=== PATIENT | female | born 1955 | race Caucasian/White ===

== ENCOUNTER 2021-02-12 13:34 | Emergency (ER) | payer MEDICARE, OTHER ==
[~2021-02-12] VITALS: Ht 149.9 cm; Wt 77.0 kg
[2021-02-12 13:34] VITALS: BP 122/86
[2021-02-12] MEDS ORDERED: DIPH,PERTUSS(ACELL),TET VAC/PF 0.5 ML SYRINGE. VAX IM ONE (15:00)
[2021-02-12] MEDS ORDERED: DOXY100T PO (15:21)
--- NOTE | 2021-02-12 15:21 | PHYS DOC ---
Past History Past Medical History: Arthritis, Asthma, Depression, GERD, Hypertension, Kidney Stones, Seizure, Other Additional Past Medical Histor: back pain Past Surgical History: Other Alcohol Use: None Adult General Chief Complaint Chief Complaint: LACERATION/AVULSION HPI HPI Patient is a female who presents to the ED today with a skin tear to the left forearm that occurred a couple minutes prior to coming to the ED while they were moving a cabinet with her . Review of Systems Review of Systems Constitutional: Denies fever or chills [] Musculoskeletal: Denies back pain or joint pain [] Integument: Left forearm skin tear Neurologic: Denies headache, focal weakness or sensory changes [] All other systems were reviewed and found to be within normal limits, except as documented in this note. Current Medications Current Medications Current Medications Medications (Trade) Dose Ordered Sig/Tae Start Time Stop Time Status Last Admin Dose Admin Diphtheria/ Pertussis/Tetanus Vacc (ADACEL TDap SYRINGE) 0.5 ml ONCE ONCE 02/12/21 15:00 02/12/21 15:01 UNV Allergies Allergies Allergies Coded Allergies Type Severity Reaction Last Updated Verified iodine Allergy Severe 02/12/21 Yes Penicillins Allergy Unknown 02/12/21 Yes Sulfa (Sulfonamide Antibiotics) Allergy Unknown 02/12/21 Yes gabapentin Allergy Unknown 02/12/21 Yes ketorolac Allergy Unknown 02/12/21 Yes meperidine Allergy Unknown 02/12/21 Yes promethazine Allergy Unknown 02/12/21 Yes Physical Exam Physical Exam Constitutional: Well developed, well nourished, no acute distress, non-toxic appearance. [] Skin: Left dorsal forearm distal and with a superficial skin tear approximately 4 cm long. Neurovascular exam is intact to the left forearm and left hand. +2 left radial pulse, cap refill less than 2 seconds in left Back: No tenderness, no CVA tenderness. [] Extremities: No tenderness, no cyanosis, no clubbing, ROM intact, no edema. [] Neurologic: Alert and oriented X 3, normal motor function, normal sensory function, no focal deficits noted. [] Psychologic: Affect normal, judgement normal, mood normal. [] Current Patient Data Vital Signs Vital Signs Date Time Temp Pulse Resp B/P (MAP) Pulse Ox O2 Delivery O2 Flow Rate FiO2 02/12/21 13:34 97.7 68 18 122/86 (98) 97 EKG EKG [] Radiology/Procedures Radiology/Procedures [] Heart Score C/O Chest Pain: N/A Risk Factors: Risk Factors: DM, Current or recent (<one month) smoker, HTN, HLP, family history of CAD, obesity. Risk Scores: Risk Factors: DM, Current or recent (<one month) smoker, HTN, HLP, family history of CAD, obesity. Course & Med Decision Making Course & Med Decision Making Pertinent Labs and Imaging studies reviewed. (See chart for details) This is a 65-year-old female patient presenting to the ED today with a skin tear to the left forearm. Tetanus updated. The skin tear was covered with Steri- Strips. Wound care instructions and return precautions provided. She requested antibiotics, she is allergic to several other antibiotics including Bactrim, penicillin. She was discharged on doxycycline Dragon Disclaimer Dragon Disclaimer This electronic medical record was generated, in whole or in part, using a voice recognition dictation system. Departure Departure: Impression: Primary Impression: Skin tear of left upper extremity Disposition: HOME / SELF CARE / HOMELESS Condition: STABLE Referrals: PCP,UNKNOWN (PCP) follow up with your doctor in 1-2 weeks Patient Instructions: Skin Tear Care Additional Instructions: You have skin tear to the left forearm. Keep the area clean and dry. Take the prescribed antibiotics until completed. Apply Neosporin to the area twice a day. Come back to the ED at any point wound condition worsens Scripts Doxycycline Hyclate (DOXYCYCLINE HYCLATE) 100 Mg Tablet 1 TAB PO BID, #14 TAB Prov: JESSICA LEONARDO APRN 02/12/21 JESSICA LEONARDO APRN February 12, 2021 15:21
== END 2021-02-12 15:40 | disposition home or self-care (01) ==
LOC: ER 13:34
DX: S41.112A Laceration without foreign body of left upper arm, initial encounter (principal); M19.90 Unspecified osteoarthritis, unspecified site; J45.909 Unspecified asthma, uncomplicated; F32.9 Major depressive disorder, single episode, unspecified; K21.9 Gastro-esophageal reflux disease without esophagitis; I10 Essential (primary) hypertension; Z87.442 Personal history of urinary calculi; Z88.0 Allergy status to penicillin; Z88.8 Allergy status to other drugs, medicaments and biological substances; Z88.2 Allergy status to sulfonamides; W22.8XXA Striking against or struck by other objects, initial encounter; Y93.89 Activity, other specified; Y92.89 Other specified places as the place of occurrence of the external cause; Y99.8 Other external cause status
CPT/HCPCS: 90471; 90715; 99283

== ENCOUNTER 2021-03-21 06:26 | Observation (INO) | payer MEDICARE, OTHER ==
[~2021-03-21] VITALS: Ht 149.9 cm; Wt 85.4 kg
[~2021-03-21 06:26] MED LIST: DOXY100T PO
[2021-03-21] MEDS ORDERED: NEOMY/BACITR/POLYMYXIN OINT PACKET. TP ONE (07:00)
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
--- NOTE | 2021-03-21 07:50 | RAD ---
Study: XR RT WRIST 3VIEWS Indication: Right wrist laceration/pain. Comparison: None. Findings: No acute fracture. Alignment is within normal limits. No advanced arthrosis. Mild soft tissue prominence at the dorsum of the distal forearm. No retained radiopaque foreign body. Impression: 1. No acute osseous abnormality. 2. Soft tissue prominence at the dorsum of the distal forearm could be related to a site of soft tiss ue injury. No retained radiopaque foreign body. Electronically signed by: KELSY HAMILTON MD (03/21/2021 7:48 AM) [facility]
--- NOTE | 2021-03-21 08:23 | RAD ---
INDICATION: Reason: soa / Spl. Instructions: / History: COMPARISON: None. FINDINGS: Single view of chest obtained. Elevation of the right hemidiaphragm. Suspected 13 mm nodular opacity in the right midlung. Air-fluid level in retrocardiac region could be from hiatal hernia. Compression fracture near the junction since. Degenerative changes the spine. En larged cardiomediastinal silhouette. IMPRESSION: * Nodular opacity in the right mid lung. Possible causes would include round atelectasis or pneumoni a as well as a lung nodule. Follow-up will be needed to ensure that this appropriately decreases. * Elevation of the right hemidiaphragm. * Suspected hiatal hernia. * Enlarged cardiomediastinal silhouette. * Compression fracture near thoracic lumbar junction. Electronically signed by: Servando Romero MD (03/21/2021 8:20 AM) [id number]
--- NOTE | 2021-03-21 08:41 | RAD ---
Examination: CT chest without contrast HISTORY: History of exertional dyspnea COMPARISON: None available Technique: Axial CT images of the chest were performed without contrast. Coronal and sagittal reforma ts are performed Exposure: One or more of the following individualized dose reduction techniques were utilized for thi s examination: 1. Automated exposure control 2. Adjustment of the mA and/or kV according to patient size 3. Use of iterative reconstruction technique FINDINGS: The visualized thyroid gland grossly appears unremarkable. The central airways are patent. Mild cardi omegaly. Trace pericardial effusion. Moderate hiatal hernia. Examination limited lack of IV contrast. No radiologically significant mediastinal lymphadenopathy. Linear airspace opacity identified in the right middle lobe lung likely atelectasis or infiltrate. The visualized noncontrasted liver demonstr ates subcentimeter cystic structure in the left lobe of the liver. The spleen, left adrenal grossly a ppears unremarkable. There is a adrenal nodule identified measuring 2 cm and measuring -1.6 Hounsfiel d units. Cholecystectomy clips identified. Mild degenerative changes thoracic spine. Mild superior endplate compression changes of T12 vertebral body. IMPRESSION: 1.Linear airspace opacity identified in the right middle lobe lung likely atelectasis or infiltrate. 2. Moderate size hiatal hernia. 3. 2 cm density identified in the right adrenal gland measuring -1.6 HU likely a lipid rich adrenal a denoma. Electronically signed by: Juan Fair MD (03/21/2021 8:39 AM) [id number]
[2021-03-21 08:55] LABS: BASO % 0 % (0-3); EOS # 0.1 x10^3/uL (0.0-0.7); EOS % 3 % (0-3); HEMATOCRIT 39.1 % (36.0-47.0); HEMOGLOBIN 13.1 g/dL (12.0-15.5); LYMPH # 1.2 x10^3/uL (1.0-4.8); LYMPH % 30 % (24-48); MEAN CORPUSCULAR HEMOGLOBIN 32 pg (25-35); MEAN CORPUSCULAR HGB CONC 34 g/dL (31-37); MEAN CORPUSCULAR VOLUME 96 fL (79-100); MONO # 0.3 x10^3/uL (0.0-1.1); MONO % 7 % (0-9); NEUT # 2.3 x10^3uL (1.8-7.7); NEUT % 60 % (31-73); PLATELET COUNT 143 x10^3/uL (140-400); RED BLOOD COUNT 4.08 x10^6/uL (3.50-5.40); RED CELL DISTRIBUTION WIDTH 13.8 % (11.5-14.5); WHITE BLOOD COUNT 3.9 x10^3/uL (4.0-11.0)
[2021-03-21 09:04] LABS: CALCIUM 9.1 mg/dL (8.5-10.1); CREATININE 0.8 mg/dL (0.6-1.0); GFR 71.5; POTASSIUM 4.1 mmol/L (3.5-5.1)
[2021-03-21 09:10] LABS: ALBUMIN 3.6 g/dL (3.4-5.0); ALBUMIN/GLOBULIN RATIO 1.3 (1.0-1.7); MAGNESIUM 2.1 mg/dL (1.8-2.4); TOTAL BILIRUBIN 0.3 mg/dL (0.2-1.0); TOTAL PROTEIN 6.4 g/dL (6.4-8.2)
[2021-03-21] MEDS ORDERED: LOSA100T14 PO (09:36)
[2021-03-21] MEDS ORDERED: BUSP15TA PO (09:36)
[2021-03-21] MEDS ORDERED: LEVO50CA3 PO (09:36)
[2021-03-21] MEDS ORDERED: ZONI100C33 PO (09:36)
[2021-03-21] MEDS ORDERED: CYCL1DRO EACHEYE (09:36)
[2021-03-21] MEDS ORDERED: ROPI0.25 PO (09:36)
[2021-03-21] MEDS ORDERED: DOCU-109 PO ×2 (09:36)
[2021-03-21] MEDS ORDERED: CARB200C7 PO (09:36)
[2021-03-21] MEDS ORDERED: ALBU2.5V8 IH (09:36)
[2021-03-21] MEDS ORDERED: FAMO-63 PO (09:36)
[2021-03-21] MEDS ORDERED: PRAV40TA2 PO ×2 (09:36→14:17)
[2021-03-21] MEDS ORDERED: PANT40TA3 PO (09:36)
[2021-03-21] MEDS ORDERED: HCTZ PO (09:36)
[2021-03-21] MEDS ORDERED: rOPINIRole 2 MG TABLET. PO ONE (09:45)
[2021-03-21 10:36] LABS: BILIRUBIN,URINE NEG (NEG); CLARITY,URINE CLEAR; COLOR,URINE YELLOW; GLUCOSE,URINE NEG (NEG); NITRITE,URINE NEG (NEG)
[2021-03-21 10:45] LABS: AMORPHOUS SEDIMENT,UR PRESENT /HPF; BACTERIA,URINE 0 /HPF (0-FEW); RBC,URINE 0 /HPF (0-2); SQUAMOUS EPITHELIAL CELL,UR FEW /LPF; WBC,URINE OCC /HPF (0-4)
[2021-03-21] MEDS ORDERED: AZITHROMYCIN 500 MG VIAL. IV ONE (10:58)
[2021-03-21] MEDS ORDERED: cefTRIAXone SODIUM 1 GM VIAL ONE (10:59)
[2021-03-21] MEDS ORDERED: AZITHROMYCIN 500 MG in IV NORMAL SALINE 250ML 250 ML IV ONE (11:00)
[2021-03-21] MEDS ORDERED: IV NORMAL SALINE 50ML 50 ML ONE (11:01)
[2021-03-21] MEDS ORDERED: ONDANSETRON ODT 4 MG TAB.RAPDIS PO ONE (11:30)
--- NOTE | 2021-03-21 12:29 | RAD ---
EXAM: Lung perfusion scintigraphy. HISTORY: Shortness of breath, right hemidiaphragmatic paralysis. COMPARISON: CT 03/21/2021, radiograph 03/21/2021. FINDINGS: 5.5 mCi Tc-99m MAA were administered intravenously. Scintigraphic images of the lungs were obtained in multiple projections. The right hemidiaphragm is elevated. Otherwise, there is a physiologic distribution of radiotracer. T here are no segmental defects. IMPRESSION: 1. No evidence of pulmonary embolism. Electronically signed by: Weston Siu MD (03/21/2021 12:26 PM) [id number]
--- NOTE | 2021-03-21 12:32 | EKG ---
[address] [address] Test Date: 2021-03-21 Test Time: 08:48:25 Pat Name: CONNER RADER Department: Room: Gender: F Otc Clerk: JUDY : 1955 Requested By: TRE MELISAS Order Number: [id number] Reading MD: Measurements Intervals [place] Rate: 53 P: 18 NH: 170 QRS: -18 QRSD: 92 T: 5 QT: 440 QTc: 415 Interpretive Statements SINUS RHYTHM LEFTWARD AXIS INCOMPLETE RIGHT BUNDLE BRANCH BLOCK QRS(T) CONTOUR ABNORMALITY CONSIDER ANTEROSEPTAL MYOCARDIAL DAMAGE POSSIBLY ABNORMAL ECG RI6.02 No previous ECG available for comparison
[2021-03-21 12:41] VITALS: BP 145/86
[2021-03-21] MEDS ORDERED: TRAZ-125 PO (14:17)
[2021-03-21 15:00] VITALS: BP 133/76
[2021-03-21] MEDS ORDERED: ALBUTEROL SULFATE 8GM INHALER. INH PRN (17:30)
--- NOTE | 2021-03-21 17:32 | HP ---
ADMIT DATE: 03/21/2021 The patient is a 65-year-old female patient who came to the Emergency Room with multiple complaints. Initially, she does complain of right wrist abrasion that occurred at around 11:00 p.m. last night while cleaning out her paper shredder while cutting it on the plastic basket, she applied Steri-Strips and stated the wound is still leaking. She is very anxious in the Emergency Department with rapid speech and upon history she reports that she apparently was discharged from [facility] on 03/16 after admission for weakness and right leg pain. She apparently was extensively investigated and was discharged home with a walker. She reported exertional shortness of breath that has been worsening in the past month and feels that as if she cannot catch her breath. She does have intermittent chest tightness episodes that are increasing in severity since she failed a stress test 10 years ago. She basically was extensively investigated in the Emergency Room, had an EKG, which showed she was in a sinus rhythm with the heart rate of 53 beats per minute, left axis deviation, normal intervals, T-wave inversion in lead III, V1, V2, V3 and no ST segment elevation or depression, did have incomplete right bundle branch block. Her x-ray of her wrist joint showed no acute fracture and alignment is within normal limits, no advanced arthrosis, mild soft tissue prominence at the distal forearm. No retained radiopaque foreign body. She did have also a chest x-ray, PA and lateral view, which showed that the patient has nodular opacity in the right mid lung, possible causes would include round atelectasis or pneumonia as well as lung nodules. Followup will be needed to ensure this is appropriately decreases, she has elevation of the right hemidiaphragm, suspected hiatal hernia and compression fractures in the thoracolumbar junction. She has had lab work done showed a CBC that was unremarkable. Her chemistry was also unremarkable. Her first set of cardiac enzymes showed troponin to be less than 0.017. The patient was admitted to do two more sets of cardiac enzyme and to consult the Cardiology Team. MAX DR: Jesus TID: [id number]
[2021-03-21 19:48] VITALS: BP 117/73
[2021-03-21] MEDS: carBAMazepine 200 MG TABLET PO SCH (20:33)
[2021-03-21] MEDS: cycloSPORINE 0.05% OPTH 1 DROP DROPERETTE OU SCH (20:33)
[2021-03-21] MEDS: busPIRone 15 MG TABLET. PO SCH (20:34)
[2021-03-21] MEDS: PANTOPRAZOLE 40 MG TABLET. PO SCH (20:34)
[2021-03-21] MEDS: rOPINIRole 2 MG TABLET. PO SCH (20:34)
[2021-03-21] MEDS ORDERED: ATORVASTATIN CALCIUM 10 MG TABLET. PO SCH (21:00)
[2021-03-21] MEDS ORDERED: FAMOTIDINE 20 MG TABLET PO SCH (21:00)
[2021-03-21] MEDS ORDERED: NON FORMULARY ITEM (Pravastatin Sodium 1 TAB) PO SCH (21:00)
[2021-03-21] MEDS ORDERED: traZODone 100 MG TABLET. PO SCH (21:00)
[2021-03-21] MEDS ORDERED: DOCUSATE SODIUM 100 MG CAPSULE PO SCH (21:00)
[2021-03-21] MEDS ORDERED: ZONISAMIDE 25 MG PO SCH (21:00)
[2021-03-21 23:30] VITALS: BP 110/71
[2021-03-22] MEDS ORDERED: LEVOTHYROXINE 50 MCG TABLET PO SCH (06:00)
[2021-03-22 06:38] VITALS: BP 124/77
[2021-03-22] MEDS ORDERED: ACETAMINOPHEN 325 MG TABLET PO PRN (06:45)
[2021-03-22 07:35] LABS: CALCIUM 8.8 mg/dL (8.5-10.1); CREATININE 0.7 mg/dL (0.6-1.0); GFR 83.5; POTASSIUM 3.8 mmol/L (3.5-5.1)
[2021-03-22] MEDS: busPIRone 15 MG TABLET. PO SCH (08:09)
[2021-03-22] MEDS: carBAMazepine 200 MG TABLET PO SCH (08:09)
[2021-03-22] MEDS: rOPINIRole 2 MG TABLET. PO SCH (08:09)
[2021-03-22] MEDS: PANTOPRAZOLE 40 MG TABLET. PO SCH (08:09)
[2021-03-22 08:10] VITALS: BP 124/77
[2021-03-22] MEDS: cycloSPORINE 0.05% OPTH 1 DROP DROPERETTE OU SCH (08:10)
[2021-03-22] MEDS ORDERED: LOSARTAN 50 MG TABLET. PO SCH (09:00)
[2021-03-22] MEDS ORDERED: AZITHROMYCIN 250 MG TABLET. PO SCH (09:00)
[2021-03-22] MEDS ORDERED: DOCUSATE SODIUM 100 MG CAPSULE PO SCH (09:00)
[2021-03-22] MEDS ORDERED: hydroCHLOROthiazide 25 MG TABLET. PO SCH (09:00)
--- NOTE | 2021-03-22 13:01 | DS ---
DATE OF DISCHARGE: 03/22/2021 ATTENDING PHYSICIAN: Dr. Booth. FINAL DISCHARGE DIAGNOSES: 1. Shortness of breath due to exacerbation of asthma. 2. Strong anxiety component. 3. Palpitation and chest pain, noncardiac. 4. Posttraumatic stress disorder. 5. Underlying depression with anxiety. 6. Probable bipolar depression. 7. Idiopathic seizure disorder. HISTORY AND PHYSICAL: The patient is a 65-year-old female in between physicians. She is scheduled to see Dr. Meena Lafleur later this month. She has been admitted to the ED, she had an abrasion on her right forearm; however, she has some shortness of breath due to anxiety. Questionable x-ray and CT, blood clots were ruled out, but she has some nodular density consistent with atelectasis. She was admitted with chest pressure and rule out coronary ischemia. PHYSICAL EXAMINATION: Please see the dictated note. PERTINENT LABORATORY AND X-RAY STUDIES: Three sets of cardiac enzymes negative for coronary ischemia that were quite normal. Hemoglobin is normal at 13.1 g/dL, white count normal at 3900. Electrolytes all within normal range. Creatinine 0.8 mg percent. Transaminases are normal. Nonfasting blood sugar normal at 105. Three sets of cardiac enzymes are normal. EKG is nondiagnostic. Imaging studies showed a CT of the chest, which showed no evidence of pulmonary emboli. Wrist x-ray showed no acute fracture. She had elevation of right hemidiaphragm compression fractures and a nodular density consistent with atelectasis. COURSE IN THE HOSPITAL: The patient was admitted. She was started on empiric antibiotics. This was discontinued. She had no symptoms of pneumonia. I did recommend some Xanax. She has a significant anxiety component verified by her . By the second hospital day, I reassured her, her cardiac enzymes were negative. She wanted to go home. I felt this is reasonable. We went ahead and cancelled the Cardiology consult. This can be done as an outpatient. I went over her medications. She should continue her Zonegran and Depakote. She will continue her albuterol, cyclosporine eyedrops, docusate, Synthroid, hydrochlorothiazide p.r.n., losartan, Protonix, pravastatin, Requip, Ultram and Zonegran, doses unchanged. In place of her BuSpar, I recommended Xanax 0.25 mg b.i.d. She will follow up with her new PCP, Dr. Lafleur. The patient was then discharged from our hospital in stable condition with explicit drug and followup care. TOTAL DISCHARGE TIME SPENT: 39 minutes. MEHREEN/RACHEL DR: Kaela TID: [id number] CC: MEENA LAFLEUR MD
[2021-03-22 18:42] LABS: THYROID STIM HORMONE (TSH) 2.787 uIU/mL (0.358-3.740)
== END 2021-03-22 11:32 | disposition home or self-care (01) ==
LOC: ER 06:26 → 1 SOUTH 10:45 → INTOOBSV 10:45
PROVIDERS: ADMIT Internal Medicine; ATTEND Internal Medicine
DX: J45.901 Unspecified asthma with (acute) exacerbation (principal); S60.811A Abrasion of right wrist, initial encounter; S50.811A Abrasion of right forearm, initial encounter; F41.8 Other specified anxiety disorders; F43.10 Post-traumatic stress disorder, unspecified; F32.9 Major depressive disorder, single episode, unspecified; R07.89 Other chest pain; D35.00 Benign neoplasm of unspecified adrenal gland; G40.909 Epilepsy, unspecified, not intractable, without status epilepticus; I10 Essential (primary) hypertension; J98.11 Atelectasis; K44.9 Diaphragmatic hernia without obstruction or gangrene; M19.90 Unspecified osteoarthritis, unspecified site; K21.9 Gastro-esophageal reflux disease without esophagitis; Z87.442 Personal history of urinary calculi; W45.8XXA Other foreign body or object entering through skin, initial encounter; Y93.89 Activity, other specified; Y92.89 Other specified places as the place of occurrence of the external cause; Y99.8 Other external cause status
CPT/HCPCS: 36415; 71046; 71250; 73110; 78580; 80048; 80053; 80061; 81001; 83735; 84443; 84484; 85025; 93005; 96365; 96366; 96367; 96376; 99285; A9540; G0378; J0456; J0696; J7050; Q0162; 96374; G0379

== ENCOUNTER 2021-12-30 18:43 | Emergency (ER) | payer MEDICARE, OTHER ==
[~2021-12-30] VITALS: Ht 149.9 cm; Wt 88.8 kg
[~2021-12-30 18:43] MED LIST changes: +ALBU2.5V8 IH; +BUSP15TA PO; +CARB200C7 PO; +CYCL1DRO EACHEYE; +DOCU-109 PO; +FAMO-63 PO; +HCTZ PO; +LEVO50CA3 PO; +LOSA100T14 PO; +PANT40TA3 PO; +PRAV40TA2 PO; +ROPI0.25 PO; +TRAZ-125 PO; +ZONI100C33 PO
[2021-12-30 19:40] VITALS: BP 137/92
--- NOTE | 2021-12-30 19:53 | PHYS DOC ---
Past History Past Medical History: Arthritis, Asthma, Depression, GERD, Hypertension, Kidney Stones, Seizure, Other Additional Past Medical Histor: back pain Past Surgical History: Other Alcohol Use: None Adult General Chief Complaint Chief Complaint: UPPER EXTREMITY INJURY HPI HPI Patient is a 66-year-old female who presents to the emergency department with a chief complaint of left shoulder, left elbow and left-sided chest wall pain, 6 out of 10, dull and achy in nature after falling on a wooden bridge on her daily walk about an hour before coming to the emergency department. Denies any head injuries, lightheadedness, syncope, neck pain, other chest pain, shortness of breath, abdominal pain, nausea, vomiting. Denies any numbness/weakness/tingling. Denies any trouble sitting, standing or walking. Did not take any medications. Review of Systems Review of Systems Review of systems otherwise unremarkable except noted in HPI Allergies Allergies Allergies Coded Allergies Type Severity Reaction Last Updated Verified iodine Allergy Severe 02/12/21 Yes Penicillins Allergy Unknown 02/12/21 Yes Sulfa (Sulfonamide Antibiotics) Allergy Unknown 02/12/21 Yes gabapentin Allergy Unknown 02/12/21 Yes ketorolac Allergy Unknown 02/12/21 Yes meperidine Allergy Unknown 02/12/21 Yes promethazine Allergy Unknown 02/12/21 Yes Physical Exam Physical Exam Constitutional: Well developed, well nourished, no acute distress, non-toxic appearance. [] HENT: Normocephalic, atraumatic, bilateral external ears normal, oropharynx moist, no oral exudates, nose normal. [] Eyes: conjunctiva normal, no discharge. [] Neck: Normal range of motion, no tenderness, supple, no stridor. [] Cardiovascular:Heart rate regular rhythm, no murmur [] Lungs & Thorax: No respiratory distress, left-sided chest wall tenderness on palpation with no obvious bruising or swelling Abdomen: Bowel sounds normal, soft, no tenderness, no masses, no pulsatile masses. [] Skin: Warm, dry, no erythema, no rash. [] Back: No tenderness, no CVA tenderness. [] Extremities: Neurovascular exam intact, pain with palpation at left shoulder, and left elbow with active and passive range of motion with no obvious bruising or deformities Neurologic: Alert and oriented X 3, normal motor function, normal sensory function, able to sit, stand and walk without issue, no focal deficits noted. [] Psychologic: Affect normal, judgement normal, mood normal. [] EKG EKG [] Radiology/Procedures Radiology/Procedures [] Heart Score C/O Chest Pain: No Risk Factors: Risk Factors: DM, Current or recent (<one month) smoker, HTN, HLP, family history of CAD, obesity. Risk Scores: Risk Factors: DM, Current or recent (<one month) smoker, HTN, HLP, family history of CAD, obesity. Course & Med Decision Making Course & Med Decision Making Patient is a 66-year-old female who presents with musculoskeletal complaints and pain after falling from standing while walking about an hour before coming Vital signs nonconcerning. Physical exam noted above. Given ice pack and Tylenol. Imaging notable for acute impacted radial head fracture and acute displaced coronoid process fracture. Given oxycodone. Placed in double sugar tong splint. Given splint management education. Advised to call the orthopedic surgery service at [facility] first thing Saturday to set up an immediate follow- up to discuss need for splint versus cast versus surgery. Also advised to follow-up with primary care physician on Saturday to update. Gave return precautions to the ED. Patient grateful, verbalized understanding and agreed with plan of discharge. [] Dragon Disclaimer Dragon Disclaimer This electronic medical record was generated, in whole or in part, using a voice recognition dictation system. Departure Departure: Impression: Primary Impression: Radial head fracture Additional Impression: Fracture of coronoid process of ulna Condition: STABLE Referrals: YINA RANDALL MD (PCP) Patient Instructions: Cast or Splint Care, Radial Head Fracture, Ulnar Fracture Additional Instructions: Thank you for coming into the emergency department tonight and allowing us to take care of you. Please read all of the attached information carefully to go over things we discussed. You can continue Tylenol and ice as needed. Please take your prescription pain medicine as needed and prescribed. It is very important that you follow-up on Saturday with your primary care physician update on your ED visit. It is very important that you call an orthopedic surgeon first thing Saturday morning as well. You can call your own if you have 1. However [facility] sister hospital has an orthopedic service that she can call Saturday at [phone] to set up an immediate follow-up to discuss need for continued splint versus cast versus surgery. Please be sure to call first thing Saturday morning and get an appointment as soon as possible. Please come back with new or concerning symptoms as we discussed. Scripts Oxycodone HCl (Roxicodone) 5 Mg Tablet 5 MG PO Q6HRS for fracture for 5 Days, #20 TAB Prov: EARNEST VACA MD 12/30/21 Problem Qualifiers EARNEST VACA MD Dec 30, 2021 19:53
[2021-12-30] MEDS ORDERED: ACETAMINOPHEN 500 MG TABLET PO ONE (20:00)
--- NOTE | 2021-12-30 20:46 | RAD ---
Exam: CT of chest without contrast INDICATION: Fall, left chest wall pain TECHNIQUE: Sequential axial images through the chest obtained without IV contrast. Sagittal and coron al reformatted images were reconstructed from the axial data and reviewed. Exposure: One or more of the following in the visualized dose reduction techniques were utilized for this examination: 1. Automated exposure control 2. Adjustment of the MA and/or KV according to patient size 3. Use of iterative of reconstructive technique Comparisons: 03/21/2021 FINDINGS: Visualized portions of the thyroid are unremarkable. No enlarged mediastinal lymph nodes are identifi ed. Heart size is normal. Small pericardial effusion. Thoracic aorta has a normal course and caliber. Pul monary artery is not enlarged. Airways are patent. No consolidation or pneumothorax. No suspicious lung nodules. No pleural effusion. Moderate-sized hiatal hernia. No suspicious osseous lesions or acute fractures. IMPRESSION: No sequela of acute traumatic injury identified chest Electronically signed by: Genaro Fermin MD (12/30/2021 8:44 PM) [facility]
--- NOTE | 2021-12-30 20:50 | RAD ---
XR ELBOW COMPLETE_LEFT 3+VIEWS History: Reason: fall / Spl. Instructions: / History: . Pain Technique: 3 views left elbow Comparison: None. Findings: Elbow joint effusion. Acute coronoid process fracture with displacement. Acute impacted radial head f racture. Impression: 1. Acute impacted radial head fracture. 2. Acute displaced coronoid process fracture. 3. Elbow joint effusion. Electronically signed by: Terence Escobar DO (12/30/2021 8:48 PM) [facility]
--- NOTE | 2021-12-30 20:51 | RAD ---
XR SHOULDER_LEFT 2+ VIEWS History: Reason: fall / Spl. Instructions: / History: . Pain Technique: 3 views left shoulder Comparison: None. Findings: No dislocation. No acute fracture. Impression: 1. No acute osseous abnormality. Electronically signed by: Terence Escobar DO (12/30/2021 8:49 PM) [facility]
[2021-12-30] MEDS ORDERED: OXYC5TAB88 PO (21:11)
[2021-12-30] MEDS ORDERED: oxyCODONE IR 5 MG TABLET PO ONE (21:15)
== END 2021-12-30 21:45 | disposition home or self-care (01) ==
LOC: ER 18:43
DX: S52.122A Displaced fracture of head of left radius, initial encounter for closed fracture (principal); S52.042A Displaced fracture of coronoid process of left ulna, initial encounter for closed fracture; R07.89 Other chest pain; M19.90 Unspecified osteoarthritis, unspecified site; J45.909 Unspecified asthma, uncomplicated; K21.9 Gastro-esophageal reflux disease without esophagitis; I10 Essential (primary) hypertension; Z87.442 Personal history of urinary calculi; Z88.8 Allergy status to other drugs, medicaments and biological substances; Z88.0 Allergy status to penicillin; Z88.2 Allergy status to sulfonamides
CPT/HCPCS: 29125; 71250; 73030; 73080; 99284

== ENCOUNTER 2022-01-02 20:58 | Emergency (ER) | payer MEDICARE, OTHER ==
[~2022-01-02] VITALS: Ht 149.9 cm; Wt 88.8 kg
[~2022-01-02 20:58] MED LIST changes: +OXYC5TAB88 PO
[2022-01-02 21:13] VITALS: BP 129/74
--- NOTE | 2022-01-02 22:06 | PHYS DOC ---
Past History Past Medical History: Arthritis, Asthma, Depression, GERD, Hypertension, Kidney Stones, Seizure, Other Additional Past Medical Histor: OSTEOPORESIS, SCOLIOSIS (MG RUBIN) Past Surgical History: Cholecystectomy, Other Additional Past Surgical Histo: PROLAPSED COLON, NUMEROUS HERNIA, HEMMORHOID (MG RUBIN) Alcohol Use: None (MG RUBIN) General Adult EDM: Chief Complaint: UPPER EXTREMITY SWELLING HPI: HPI: Patient is a 66 year old female with recent multiple fractures of the left forearm who presents with left hand swelling and left upper extremity pain. Patient states she was seen on Saturday night after a mechanical fall at home, where she was diagnosed with forearm fracture. She was placed in a sugar tong splint and given Ortho referral. At the time of diagnosis, she was provided with oxycodone tablets for pain. Patient denies having significant pain prior to today. She states she was seen by orthopedics yesterday. Patient was advised that due to her osteoporosis, internal fixation would not be appropriate. She was instructed to leave the splint on and follow-up in 1 month. Since she left the orthopedist office, she states that her pain has gradually been increasing in the swelling in her fingers has worsened. Patient denies any new injuries or trauma, paresthesias, cool skin, pallor. (MG RUBIN) Review of Systems: Review of Systems: ROS negative or noncontributory except as mentioned in HPI. (MG RUBIN) Allergies: Allergies: Allergies Coded Allergies Type Severity Reaction Last Updated Verified iodine Allergy Severe 02/12/21 Yes Penicillins Allergy Intermediate 12/30/21 Yes Sulfa (Sulfonamide Antibiotics) Allergy Intermediate 12/30/21 Yes fentanyl Allergy Intermediate 12/30/21 Yes gabapentin Allergy Intermediate 12/30/21 Yes ketorolac Allergy Intermediate 12/30/21 Yes meperidine Allergy Intermediate 12/30/21 Yes promethazine Allergy Intermediate 12/30/21 Yes (MG RUBIN) Physical Exam: PE: Constitutional: Well developed, well nourished, no acute distress, non-toxic appearance. HENT: Normocephalic, atraumatic, bilateral external ears normal, nose normal. Eyes: EOMI, conjunctiva normal, no discharge. Neck: Normal range of motion, no stridor. Skin: Warm, dry, no erythema, no rash. Extremities: Left hand with edema and tenderness, capillary refill less than 2 seconds, skin is warm and pink, sensation intact. Extremities otherwise no tenderness, no cyanosis, no clubbing, ROM intact, no edema. Neurologic: Alert and oriented x4, normal motor function, normal sensory function, no focal deficits noted. (MG RUBIN) Current Patient Data: Vital Signs: Vital Signs Date Time Temp Pulse Resp B/P (MAP) Pulse Ox O2 Delivery O2 Flow Rate FiO2 01/02/22 21:13 97.1 87 18 129/74 (92) 93 Room Air (MG RUBIN) Heart Score: C/O Chest Pain: No (MG RUBIN) Course & Med Decision Making: Course & Med Decision Making Pertinent Labs and Imaging studies reviewed. (See chart for details) Patient is a 66-year-old female who appears to have some dependent edema and tenderness secondary to a tight Wilian bandage. Patient's Wilian wrap was undone, splint left in place for period of time. Swelling in her fingers did improve significantly as did her tenderness. Patient was very concerned about spontaneous fractures secondary to osteoporosis. On exam, I am not concerned for fractures of the hand. Had a long discussion with her about keeping her arm elevated while at rest to avoid dependent edema and worsening pain. She was also counseled on how to rewrap her Wilian bandage at home and the appropriate tension. Patient was strongly advised to contact her orthopedist should she have any further concerns. Strict return precautions were provided for the emergency department. Patient understands and is agreeable to discharge plan. (MG RUBIN) Dragon Disclaimer: Dragon Disclaimer: This electronic medical record was generated, in whole or in part, using a voice recognition dictation system. (MG RUBIN) Departure Departure: Impression: Primary Impression: Multiple fractures of left forearm Qualified Codes: S52.92XD - Unspecified fracture of left forearm, subsequent encounter for closed fracture with routine healing Additional Impression: Localized swelling on left hand Disposition: HOME / SELF CARE / HOMELESS Condition: IMPROVED Referrals: YINA RANDALL MD (PCP) Patient Instructions: Forearm Fracture, [id number], RICE - Routine Care for Injuries, [id number] Additional Instructions: EMERGENCY DEPARTMENT GENERAL DISCHARGE INSTRUCTIONS Thank you for coming to [facility] (ED) today and trusting us with you care. We trust that you had a positive experience in our Emergency Department. If you wish to speak to the department management, you may call the director at [phone]. YOUR FOLLOW UP INSTRUCTIONS ARE FOLLOWS: 1. Follow up with your primary care doctor. If you do not have a primary doctor, please ask for a resource list of physicians or clinics that may be able to assist you with follow up care. 2. The emergency provider has interpreted your imaging studies, if any were ordered. The radiology master lay out specialist also reviewed them. If there is a change in the findings, you will be notified in 48 hours when at all possible. 3. If a lab test or culture has been done, your results will be reviewed and you will be notified if you need a change in treatment. 4. Follow instructions verbalized to you and refer to the printouts if needed. ADDITIONAL INSTRUCTIONS AND INFORMATION: 1. Your care today has been supervised by a physician who is specially trained in emergency care. Many problems require more than one evaluation for a complete diagnosis and treatment. We recommend that you schedule your follow up appointment as recommended to ensure complete treatment of you illness or injury. If you are unable to obtain follow up care and continue to have a problem, or if your condition worsens, we recommend that you return to the ED. 2. We are not able to safely determine your condition over the phone nor are we able to give sound medical advice over the phone. For these safety reasons, if you call for medical advice we will ask you to come to the ED for further evaluation. 3. If you have any questions regarding these discharge instructions please call the ED at [phone]. SAFETY INFORMATION: In the interest of safety, wellness, and injury prevention; we encourage you to wear your seat belt, if you smoke; quite smoking, and we encourage family to use a protective helmet for bicycling and other sporting events that present an increased risk for head injury. IF YOUR SYMPTOMS WORSEN OR NEW SYMPTOMS DEVELOP, OR YOU HAVE CONCERNS ABOUT YOUR CONDITION; OR IF YOUR CONDITION WORSENS WHILE YOU ARE WAITING FOR YOUR FOLLOW UP APPOINTMENT; EITHER CONTACT YOUR PRIMARY CARE DOCTOR, THE PHYSICIAN WHOSE NAME AND NUMBER YOU WERE GIVEN, OR RETURN TO THE ED IMMEDIATELY. Dragon Disclaimer This chart was dictated in whole or in part using Voice Recognition software in a busy, high-work load, and often noisy Emergency Department environment. It may contain unintended and wholly unrecognized errors or omissions. (SACHIN WALSH MD) Attending Signature Attending Signature I have participated in the care of this patient and I have reviewed and agree with all pertinent clinical information above including history, exam, and recommendations. (SACHIN WALSH MD) MG RUBIN Jan 02, 2022 22:06 SACHIN WALSH MD Jan 04, 2022 23:08
== END 2022-01-02 22:34 | disposition home or self-care (01) ==
LOC: ER 20:58
DX: S52.92XD Unspecified fracture of left forearm, subsequent encounter for closed fracture with routine healing (principal); M19.90 Unspecified osteoarthritis, unspecified site; J45.909 Unspecified asthma, uncomplicated; F32.9 Major depressive disorder, single episode, unspecified; K21.9 Gastro-esophageal reflux disease without esophagitis; I10 Essential (primary) hypertension; Z87.442 Personal history of urinary calculi; Z88.8 Allergy status to other drugs, medicaments and biological substances; Z88.2 Allergy status to sulfonamides; Z88.0 Allergy status to penicillin; W18.39XD Other fall on same level, subsequent encounter
CPT/HCPCS: 99281

== ENCOUNTER → 2022-01-11 | Outpatient (CLI) | payer MEDICARE, OTHER ==
[2022-01-02 21:13] VITALS: BP 129/74
--- NOTE | 2022-01-11 11:43 | RAD ---
EXAMINATION: XR ELBOW COMPLETE_LEFT 3+VIEWS, XR LT WRIST 3VIEWS, XR FOREARM_LEFT 2 VIEWS. HISTORY: 66 years Female Reason: FOLLOW UP TO FRACTURE IN EARLY DECEMBER 2021 COMPARISON: December 28, 2021. FINDINGS: There is increased impaction in the radial head the fracture seen compared to the previous exam with the angulation appreciated in the lateral projection of about 30 degrees at the radial head level. Th e coronoid the process fractures demonstrate no definite displacement. No new definite fracture is ap preciated. The radiographs are from limited to some extent however due to lack of a true AP projectio n at the elbow and the overlying catheter cast. The forearm radiographs demonstrate no mid or distal the ulna or from radius fractures. The left suggestive radiographs demonstrate degenerative changes at the radiocarpal joint with no acu te fractures. IMPRESSION: There is increased impaction and angulation at the radius head fracture. Unchanged ulnar coronoid pro cess fracture. Electronically signed by: Eron Mendoza MD (01/11/2022 8:43 AM) [id number]
== END ==
LOC: RAD 07:56
PROVIDERS: ATTEND Nurse Practitioner Family
DX: S52.045D Nondisplaced fracture of coronoid process of left ulna, subsequent encounter for closed fracture with routine healing (principal); S52.125D Nondisplaced fracture of head of left radius, subsequent encounter for closed fracture with routine healing; M21.832 Other specified acquired deformities of left forearm; X58.XXXD Exposure to other specified factors, subsequent encounter
CPT/HCPCS: 73080; 73090; 73110

== ENCOUNTER 2022-01-17 01:53 | Emergency (ER) | payer MEDICARE, OTHER ==
[~2022-01-17] VITALS: Ht 165.1 cm; Wt 89.1 kg
[2022-01-17 02:09] VITALS: BP 118/68
--- NOTE | 2022-01-17 02:58 | PHYS DOC ---
Past History Past Medical History: Arthritis, Asthma, Depression, GERD, Hypertension, Kidney Stones, Seizure, Other Additional Past Medical Histor: OSTEOPORESIS, SCOLIOSIS Past Surgical History: Other Additional Past Surgical Histo: PROLAPSED COLON, NUMEROUS HERNIA, HEMMORHOID Alcohol Use: None General Adult EDM: Chief Complaint: UPPER EXTREMITY PAIN HPI: HPI: 58-year-old female presents emergency room with concern for left upper extremity fracture. The patient was seen in this emergency room diagnosed with a radial head ulnar styloid fracture. She was placed in a splint and sent to orthopedics. She has been seen by orthopedics twice. She had a repeat x-ray between these visits and was told by a practitioner at an urgent care that there were changes to her x-ray. Her orthopedic surgeon then told her that there were no changes. She is just very concerned and she is worried about the discrepancy. She was having trouble going to sleep and decided to come the emergency room. She denies any new falls or injuries. She is concerned that her splint has a lot of extra room near the elbow because the swelling has improved versus her initial injury. She has no new complaints. Review of Systems: Review of Systems: Constitutional: Denies fever or chills Eyes: Denies change in visual acuity HENT: Denies nasal congestion or sore throat Respiratory: Denies cough or shortness of breath Cardiovascular: Denies chest pain or edema GI: Denies abdominal pain, nausea, vomiting, bloody stools or diarrhea : Denies dysuria Musculoskeletal: Left elbow and forearm pain Integument: Denies rash Neurologic: Denies headache, focal weakness or sensory changes Endocrine: Denies polyuria or polydipsia Lymphatic: Denies swollen glands Psychiatric: Anxiety Allergies: Allergies: Allergies Coded Allergies Type Severity Reaction Last Updated Verified iodine Allergy Severe 02/12/21 Yes Penicillins Allergy Intermediate 12/30/21 Yes Sulfa (Sulfonamide Antibiotics) Allergy Intermediate 12/30/21 Yes fentanyl Allergy Intermediate 12/30/21 Yes gabapentin Allergy Intermediate 12/30/21 Yes ketorolac Allergy Intermediate 12/30/21 Yes meperidine Allergy Intermediate 12/30/21 Yes promethazine Allergy Intermediate 12/30/21 Yes Physical Exam: PE: Constitutional: Well developed, well nourished, no acute distress, non-toxic appearance. [] HENT: Normocephalic, atraumatic, bilateral external ears normal, oropharynx moist, no oral exudates, nose normal. [] Eyes: PERRLA, EOMI, conjunctiva normal, no discharge. [] Neck: Normal range of motion, no tenderness, supple, no stridor. [] Cardiovascular:Heart rate regular rhythm, no murmur [] Lungs & Thorax: Bilateral breath sounds clear to auscultation [] Abdomen: Bowel sounds normal, soft, no tenderness, no masses, no pulsatile masses. [] Skin: Warm, dry, no erythema, no rash. [] Back: No tenderness, no CVA tenderness. [] Extremities: Left forearm in sugar tong splint [] Neurologic: Alert and oriented X 3, normal motor function, normal sensory function, no focal deficits noted. [] Psychologic: Affect normal, judgement normal, mood anxious. [] Current Patient Data: Vital Signs: Vital Signs Date Time Temp Pulse Resp B/P (MAP) Pulse Ox O2 Delivery O2 Flow Rate FiO2 01/17/22 02:09 97.6 77 22 118/68 (85) 94 EKG: EKG: [] Radiology/Procedures: Radiology/Procedures: [] Heart Score: C/O Chest Pain: N/A Risk Factors: Risk Factors: DM, Current or recent (<one month) smoker, HTN, HLP, family history of CAD, obesity. Risk Scores: Score 0 - 3: 2.5% MACE over next 6 weeks - Discharge Home Score 4 - 6: 20.3% MACE over next 6 weeks - Admit for Clinical Observation Score 7 - 10: 72.7% MACE over next 6 weeks - Early Invasive Strategies Course & Med Decision Making: Course & Med Decision Making Pertinent Labs and Imaging studies reviewed. (See chart for details) The patient is very anxious about her injury. She just is not sure why there is conflicting data. I explained to the patient that the technical difference between the x-rays may not constitute a functional difference. The radiologist measured a change but the orthopedist may not feel that that change is significant. The patient is reassured by this. She is also concerned about the extra space in her splint and wanted me to make sure that she was not having skin breakdown under the splint. I directly observed her skin with a splint and she has no breakdown. I do agree that the space around her elbow which is the point of fracture has more looseness than I would prefer. We will remold a new splint. She will follow-up with orthopedics as previously planned. She is stable for discharge at this time. [] Abhijeeton Disclaimer: Dragmalaika Disclaimer: This electronic medical record was generated, in whole or in part, using a voice recognition dictation system. Departure Departure: Impression: Primary Impression: Radial head fracture, closed Additional Impression: Fracture of ulnar styloid Referrals: YINA RANDALL MD (PCP) Patient Instructions: Splint Care, [id number] BRIDGETTE SUAREZ DO Jan 17, 2022 02:58
[2022-01-17] MEDS ORDERED: HYDROcodone/APAP 7.5/325MG 1 TAB TABLET PO ONE (03:30)
== END 2022-01-17 03:33 | disposition home or self-care (01) ==
LOC: ER 01:53
DX: S52.122D Displaced fracture of head of left radius, subsequent encounter for closed fracture with routine healing (principal); S52.612D Displaced fracture of left ulna styloid process, subsequent encounter for closed fracture with routine healing; M19.90 Unspecified osteoarthritis, unspecified site; J45.909 Unspecified asthma, uncomplicated; F32.9 Major depressive disorder, single episode, unspecified; K21.9 Gastro-esophageal reflux disease without esophagitis; I10 Essential (primary) hypertension; Z87.442 Personal history of urinary calculi; Z88.8 Allergy status to other drugs, medicaments and biological substances; Z88.0 Allergy status to penicillin; Z88.2 Allergy status to sulfonamides; X58.XXXD Exposure to other specified factors, subsequent encounter
CPT/HCPCS: 99283

== ENCOUNTER → 2022-01-20 | Outpatient (CLI) | payer MEDICARE, OTHER ==
[2022-01-17 02:09] VITALS: BP 118/68
--- NOTE | 2022-01-20 09:28 | RAD ---
XR HAND_LEFT 3 VIEWS, XR ELBOW COMPLETE_LEFT 3+VIEWS Clinical indications: Reason: FELL 12/30/2021 with history of radial head impaction fracture and benjamin noid process fracture. Fell out of bed last night, 01/19/2022 /left elbow pain. Left hand pain involv ing the palm and fourth digit. COMPARISON: January 11, 2022 left elbow study and left wrist study. Left elbow: The left elbow and forearm are immobilized in cast which obscures fine bony detail. Align ment is normal. Left elbow joint effusion is seen. Again seen are nondisplaced fractures of the radia l head and coronoid process. Three-view left hand study: Left wrist and proximal hand are partially obscured by overlying cast. No acute fracture or dislocation or lytic process is seen otherwise. Scaphoid bone appears intact. Ther e is primary degenerative osteoarthritis of the first carpal metacarpal joint. IMPRESSION: No change in fractures of left radial head and coronoid process of the left elbow. No new fracture is evident. Electronically signed by: Johnnie Steen MD (01/20/2022 9:25 AM) [id number]
== END ==
LOC: RAD 08:44
PROVIDERS: ATTEND Physician Assistant
DX: S52.125A Nondisplaced fracture of head of left radius, initial encounter for closed fracture (principal); M19.022 Primary osteoarthritis, left elbow; M25.422 Effusion, left elbow; W19.XXXA Unspecified fall, initial encounter; Y93.89 Activity, other specified; Y92.89 Other specified places as the place of occurrence of the external cause; Y99.8 Other external cause status
CPT/HCPCS: 73080; 73130

== ENCOUNTER 2022-02-17 10:01 | Observation (INO) | payer MEDICARE, OTHER ==
[~2022-02-17] VITALS: Ht 149.9 cm; Wt 90.5 kg
--- NOTE | 2022-02-17 11:11 | RAD ---
PROCEDURE: XR CHEST 1V.02/17/2022 11:06 AM REASON FOR STUDY: Reason: sob / Spl. Instructions: / History: . COMPARISON: Exam of 03/21/2021. FINDINGS: The right hemidiaphragm remains elevated. No new infiltrate or effusion is seen. The heart appears enlarged, but unchanged. Pulmonary vascularity is not congested. There is evidence of a hiata l hernia. IMPRESSION: No acute findings. Electronically signed by: Omkar Varner Jr., MD (02/17/2022 11:08 AM) [id number]
[2022-02-17 11:16] LABS: BASO % 0 % (0-3); EOS # 0.2 x10^3/uL (0.0-0.7); EOS % 6 % (0-3); HEMATOCRIT 35.6 % (36.0-47.0); HEMOGLOBIN 11.8 g/dL (12.0-15.5); LYMPH # 0.8 x10^3/uL (1.0-4.8); LYMPH % 23 % (24-48); MEAN CORPUSCULAR HEMOGLOBIN 32 pg (25-35); MEAN CORPUSCULAR HGB CONC 33 g/dL (31-37); MEAN CORPUSCULAR VOLUME 95 fL (79-100); MONO # 0.2 x10^3/uL (0.0-1.1); MONO % 7 % (0-9); NEUT # 2.3 x10^3uL (1.8-7.7); NEUT % 64 % (31-73); PLATELET COUNT 169 x10^3/uL (140-400); RED BLOOD COUNT 3.74 x10^6/uL (3.50-5.40); RED CELL DISTRIBUTION WIDTH 13.5 % (11.5-14.5); WHITE BLOOD COUNT 3.6 x10^3/uL (4.0-11.0)
[2022-02-17 11:17] LABS: CALCIUM 8.6 mg/dL (8.5-10.1); CREATININE 0.7 mg/dL (0.6-1.0); GFR 83.2; POTASSIUM 3.3 mmol/L (3.5-5.1)
[2022-02-17 11:22] LABS: ALBUMIN 3.1 g/dL (3.4-5.0); TOTAL BILIRUBIN 0.4 mg/dL (0.2-1.0); TOTAL PROTEIN 6.2 g/dL (6.4-8.2)
--- NOTE | 2022-02-17 12:39 | PHYS DOC ---
Past History Past Medical History: Arthritis, Asthma, Depression, GERD, Hypertension, Kidney Stones, Seizure, Other Additional Past Medical Histor: OSTEOPORESIS, SCOLIOSIS, R paralyzed hemidiaphragm, kyphosis Past Surgical History: Other Additional Past Surgical Histo: PROLAPSED COLON, NUMEROUS HERNIA, HEMMORHOID Alcohol Use: None General Adult EDM: Chief Complaint: SHORTNESS OF BREATH HPI: HPI: Patient is a 66-year-old female who presents with shortness of breath. Patient states that she had surgery on 02/08 for hernia repair. Patient has had some left lower leg swelling and shortness of breath since the surgery. No pain. No nausea/vomiting/diarrhea. No chest pain. History of hypertension, GERD, asthma. Review of Systems: Review of Systems: ROS At least 10 ROS systems have been reviewed and are negative except as documented in the HPI. General: Negative except as outlined in HPI above. Skin: Negative except as outlined in HPI above. HEENT: Negative except as outlined in HPI above. Neck: Negative except as outlined in HPI above. Respiratory: Negative except as outlined in HPI above.. Cardiovascular: Negative except as outlined in HPI above. Abdomen: Negative except as outlined in HPI above. : Negative except as outlined in HPI above. Back/MSK: Negative except as outlined in HPI above. Neuro: Negative except as outlined in HPI above. Psych: Negative except as outlined in HPI above. Allergies: Allergies: Allergies Coded Allergies Type Severity Reaction Last Updated Verified iodine Allergy Severe 02/12/21 Yes Penicillins Allergy Intermediate 12/30/21 Yes Sulfa (Sulfonamide Antibiotics) Allergy Intermediate 12/30/21 Yes fentanyl Allergy Intermediate 12/30/21 Yes gabapentin Allergy Intermediate 12/30/21 Yes ketorolac Allergy Intermediate 12/30/21 Yes meperidine Allergy Intermediate 12/30/21 Yes promethazine Allergy Intermediate 12/30/21 Yes Physical Exam: PE: Constitutional: Well developed, well nourished, no acute distress, non-toxic appearance. [] HENT: Normocephalic, atraumatic, bilateral external ears normal, oropharynx moist, no oral exudates, nose normal. [] Eyes: PERRLA, EOMI, conjunctiva normal, no discharge. [] Neck: Normal range of motion, no tenderness, supple, no stridor. [] Cardiovascular:Heart rate regular rhythm, no murmur [] Lungs & Thorax: Bilateral breath sounds clear to auscultation , no wheezing Abdomen: Bowel sounds normal, soft, no tenderness, no masses Skin: Warm, dry, no erythema, no rash. [] Back: No tenderness, no CVA tenderness. [] Extremities: No tenderness, no cyanosis, no clubbing, ROM intact, no edema. [] Neurologic: Alert and oriented X 3, normal motor function, normal sensory function, no focal deficits noted. [] Psychologic: Affect normal, judgement normal, mood normal. [] Current Patient Data: Labs: Laboratory Tests Test 02/17/22 10:46 White Blood Count 3.6 x10^3/uL (4.0-11.0) L Red Blood Count 3.74 x10^6/uL (3.50-5.40) Hemoglobin 11.8 g/dL (12.0-15.5) L Hematocrit 35.6 % (36.0-47.0) L Mean Corpuscular Volume 95 fL (79-100) Mean Corpuscular Hemoglobin 32 pg (25-35) Mean Corpuscular Hemoglobin Concent 33 g/dL (31-37) Red Cell Distribution Width 13.5 % (11.5-14.5) Platelet Count 169 x10^3/uL (140-400) Neutrophils (%) (Auto) 64 % (31-73) Lymphocytes (%) (Auto) 23 % (24-48) L Monocytes (%) (Auto) 7 % (0-9) Eosinophils (%) (Auto) 6 % (0-3) H Basophils (%) (Auto) 0 % (0-3) Neutrophils # (Auto) 2.3 x10^3uL (1.8-7.7) Lymphocytes # (Auto) 0.8 x10^3/uL (1.0-4.8) L Monocytes # (Auto) 0.2 x10^3/uL (0.0-1.1) Eosinophils # (Auto) 0.2 x10^3/uL (0.0-0.7) Basophils # (Auto) 0.0 x10^3/uL (0.0-0.2) D-Dimer (Martha) 1.05 mg/L (0.00-0.50) H Sodium Level 142 mmol/L (136-145) Potassium Level 3.3 mmol/L (3.5-5.1) L Chloride Level 105 mmol/L (98-107) Carbon Dioxide Level 31 mmol/L (21-32) Anion Gap 6 (6-14) Blood Urea Nitrogen 20 mg/dL (7-20) Creatinine 0.7 mg/dL (0.6-1.0) Estimated GFR (Cockcroft-Gault) 83.2 BUN/Creatinine Ratio 29 (6-20) H Glucose Level 96 mg/dL (70-99) Calcium Level 8.6 mg/dL (8.5-10.1) Total Bilirubin 0.4 mg/dL (0.2-1.0) Aspartate Amino Transferase (AST) 14 U/L (15-37) L Alanine Aminotransferase (ALT) 20 U/L (14-59) Alkaline Phosphatase 100 U/L (46-116) Total Protein 6.2 g/dL (6.4-8.2) L Albumin 3.1 g/dL (3.4-5.0) L Albumin/Globulin Ratio 1.0 (1.0-1.7) Vital Signs: Vital Signs Date Time Temp Pulse Resp B/P (MAP) Pulse Ox O2 Delivery O2 Flow Rate FiO2 02/17/22 10:19 98.2 68 20 121/74 (90) 98 Room Air EKG: EKG: [] Radiology/Procedures: Radiology/Procedures: [] Heart Score: C/O Chest Pain: No Risk Factors: Risk Factors: DM, Current or recent (<one month) smoker, HTN, HLP, family history of CAD, obesity. Risk Scores: Score 0 - 3: 2.5% MACE over next 6 weeks - Discharge Home Score 4 - 6: 20.3% MACE over next 6 weeks - Admit for Clinical Observation Score 7 - 10: 72.7% MACE over next 6 weeks - Early Invasive Strategies Course & Med Decision Making: Course & Med Decision Making Pertinent Labs and Imaging studies reviewed. (See chart for details) [] Nontoxic-appearing 66-year-old female who presents with shortness of breath. Is on 02/08 for hernia repair. Also does report some left lower leg swelling. Mild edema seen on left lower leg. Lung sounds are clear on auscultation, no wheezing or stridor heard. Work-up in ER consisted of CBC, CMP, D-dimer, troponin, BMP, urinalysis, chest x-ray. Chest x-ray was unremarkable. D-dimer was elevated. Patient is allergic to contrast dye and unable to get CTA. Due to recent surgery, shortness of breath, patient symptoms are suspicious for pulmonary embolism. Spoke with Dr. Booth who is the admitting physician at [facility]. Dr. Lopez requested ultrasound to be ordered for bilateral lower extremities, bilateral upper extremities. Ultrasounds were unremarkable. Patient is still going to be admitted to the hospital for further imaging after anaphylactic protocol was administered. Patient started on Lovenox. Dragon Disclaimer: Dragon Disclaimer: This electronic medical record was generated, in whole or in part, using a voice recognition dictation system. Departure Departure: Impression: Primary Impression: Shortness of breath Disposition: ADMITTED INPATIENT Admitting Physician: Dago Booth Condition: STABLE Referrals: YINA RANDALL MD (PCP) YOGESH HANKINS APRN February 17, 2022 12:39
[2022-02-17 12:50] LABS: CLARITY,URINE HAZY; COLOR,URINE YELLOW; GLUCOSE,URINE NEG (NEG)
[2022-02-17 12:51] LABS: AMORPHOUS SEDIMENT,UR PRESENT /HPF; BACTERIA,URINE 0 /HPF (0-FEW); NITRITE,URINE NEG (NEG); RBC,URINE 0 /HPF (0-2); SQUAMOUS EPITHELIAL CELL,UR MOD /LPF; WBC,URINE 0 /HPF (0-4)
--- NOTE | 2022-02-17 13:14 | EKG ---
[address] [address] Test Date: 2022-02-17 Test Time: 10:45:53 Pat Name: CONNER RADER Department: Room: Gender: F Computer Drafter: JUDY : 1955 Requested By: YOGESH HANKINS Order Number: [id number] Reading MD: Nazario Ly MD Measurements Intervals [place] Rate: 52 P: 17 RI: 170 QRS: -28 QRSD: 86 T: -1 QT: 440 QTc: 411 Interpretive Statements SINUS RHYTHM Electronically Signed On 02-19-2022 8:56:02 CDT by Nazario Ly MD
[2022-02-17] MEDS ORDERED: rOPINIRole 0.5 MG TABLET. PO ONE (15:00)
[2022-02-17] MEDS ORDERED: HYDROcodone/APAP 5/325MG 1 TAB TABLET PO ONE (15:15)
[2022-02-17] MEDS ORDERED: rOPINIRole 2 MG TABLET. PO ONE (15:30)
[2022-02-17] MEDS ORDERED: IV NORMAL SALINE 1,000ML 1,000 ML IV SCH (17:00)
[2022-02-17] MEDS ORDERED: ENOXAPARIN ** NOTE DOSE ** SYRINGE SQ ONE (17:00)
--- NOTE | 2022-02-17 17:54 | RAD ---
STUDY: US DPLX VENOUS EXTREMITY UPPER LT INDICATION: Left upper extremity pain. DVT. TECHNIQUE: Color-flow and pulsed wave duplex ultrasound with compression of venous structures of the left upper extremity. COMPARISON: None. FINDINGS: Duplex ultrasound with compression of the deep venous structures of the left upper extremity from the internal jugular vein through the radial/ulnar veins is negative for DVT. Normal venous waveforms an d augmentation are noted throughout. Patent superficial cephalic and basilic veins. IMPRESSION: No deep or superficial thrombosis seen throughout the left upper extremity. Electronically signed by: KELSY HAMILTON MD (02/17/2022 5:52 PM) [facility]ENTERCHRISTOPHER
--- NOTE | 2022-02-17 17:54 | RAD ---
STUDY: US DPLX VENOUS EXTREMITY LOWER LT INDICATION: Lower extremity swelling. DVT. TECHNIQUE: Color-flow and pulsed wave duplex ultrasound with compression of venous structures of the left lower extremity. COMPARISON: None. FINDINGS: Duplex ultrasound with compression of the deep venous structures of the left lower extremity. from th e common femoral vein through the popliteal vein is negative for DVT. The posterior tibial and peroneal veins are segmentally visualized and patent where seen. Normal veno us waveforms and augmentation are noted throughout. IMPRESSION: No deep venous thrombosis identified throughout the left lower extremity. Electronically signed by: KELSY HAMILTON MD (02/17/2022 5:51 PM) JHONATHAN
[2022-02-17 18:33] VITALS: BP 116/77
--- NOTE | 2022-02-17 18:35 | NUR ---
Nursing note PT Migdalia Waters was admitted to the floor from the ED by sindy barrientos. PT placed in room, In bed, bed low, call light within reach. Belonging checked, vitals assessed and documented. Tele monitor placed on PT with heart rate at 56bpm. PT stated her heart rate can run low at times when she is sleeping. PT verbalized no other needs.
[2022-02-17 20:16] VITALS: BP 155/88
[2022-02-17] MEDS ORDERED: SERT50TA PO (20:41)
[2022-02-17] MEDS ORDERED: BUSP15TA PO (20:41)
[2022-02-17] MEDS ORDERED: CLON0.5T4 PO (20:41)
[2022-02-17] MEDS ORDERED: FAMO40TA4 PO (20:41)
[2022-02-17] MEDS ORDERED: OLME40TA12 PO (20:41)
[2022-02-17] MEDS ORDERED: ALBUTEROL SULFATE 2.5 MG/3 ML NEBU. IH PRN (20:45)
[2022-02-17] MEDS ORDERED: ATORVASTATIN CALCIUM 10 MG TABLET. PO SCH (21:00)
[2022-02-17] MEDS ORDERED: clonazePAM 0.5 MG TABLET PO SCH (21:00)
[2022-02-17] MEDS ORDERED: DOCUSATE SODIUM 100 MG CAPSULE PO SCH (21:00)
[2022-02-17] MEDS ORDERED: FAMOTIDINE 20 MG TABLET PO SCH (21:00)
[2022-02-17] MEDS ORDERED: predniSONE 20 MG TABLET PO ONE (21:00)
[2022-02-17] MEDS ORDERED: ZONISAMIDE 100 MG CAPSULE. PO SCH (21:00)
[2022-02-17] MEDS ORDERED: rOPINIRole 0.25 MG TABLET. PO SCH (21:00)
[2022-02-17] MEDS: busPIRone 15 MG TABLET. PO SCH (21:13)
[2022-02-17] MEDS: carBAMazepine 200 MG TABLET PO SCH (21:14)
[2022-02-18] MEDS ORDERED: predniSONE 20 MG TABLET PO ONE ×2 (00:01→06:00)
[2022-02-18] MEDS: ACETAMINOPHEN 325 MG TABLET PO PRN ×2 (00:08→09:43)
[2022-02-18 05:53] VITALS: BP 110/69
[2022-02-18] MEDS ORDERED: LEVOTHYROXINE 50 MCG TABLET PO SCH (06:00)
[2022-02-18] MEDS ORDERED: IOHEXOL 350 MG/ML 100 ML VIAL. IV ONE (07:30)
[2022-02-18] MEDS ORDERED: diphenhydrAMINE HCL 25 MG CAPSULE PO ONE (08:30)
[2022-02-18] MEDS: LOSARTAN 50 MG TABLET. PO SCH ×2 (09:00→09:42)
[2022-02-18] MEDS ORDERED: rOPINIRole 2 MG TABLET. PO SCH (09:00)
[2022-02-18] MEDS ORDERED: PANTOPRAZOLE 40 MG TABLET. PO SCH (09:00)
[2022-02-18] MEDS ORDERED: SERTRALINE 50 MG TABLET. PO SCH (09:00)
[2022-02-18] MEDS: DOCUSATE SODIUM 100 MG CAPSULE PO SCH ×2 (09:00→09:42)
[2022-02-18] MEDS ORDERED: hydroCHLOROthiazide 25 MG TABLET. PO SCH (09:00)
--- NOTE | 2022-02-18 09:09 | NUR ---
pt left for ct at approx 0910. via staff transport in wheelchair. Benadryl given at 0845. Joyce in radiology aware.
[2022-02-18] MEDS: carBAMazepine 200 MG TABLET PO SCH (09:42)
[2022-02-18] MEDS: busPIRone 15 MG TABLET. PO SCH (09:43)
--- NOTE | 2022-02-18 09:54 | RAD ---
CT angiography chest with contrast PQRS statement: CT scans at this facility use dose reduction including either automated exposure cont rol, iterative reconstructions, and /or weight based radiation dosing via mA and kV modification when appropriate to reduce radiation dose to as low as reasonably achievable. HISTORY: Short of breath. Pulmonary embolism. Contrast: 100 mL Omnipaque 350 intravenous contrast. 3-D MIP reconstructions of the arteries were acq uired. The geodetic surveyor technologist indicates that the patient was premedicated with steroids and Benadryl travis or to this procedure due to history of iodine contrast allergy based on the ordering physician's dire ction, the radiologist was not aware of the allergy or involved with premedication for this exam. COMPARISON: CT chest December 31, 2019 FINDINGS: Ascending aorta diameter is 3.3 cm. Heart size upper limits of normal. However the upper st omach. Left hepatic lobe subcentimeter hypodensity stable most likely small cysts. Fluid within the l ower esophagus perhaps from reflux. No pulmonary artery emboli. There is a linear band of chronic ate lectasis of the right upper lobe silhouetting the minor fissure which is stable to CT imaging back to 2020. No new area of atelectasis or pulmonary opacity or nodularity. No pleural effusion. IMPRESSION: 1. No acute process. No pulmonary artery emboli. 2. Chronic discoid atelectasis at the right upper lobe anterior segment along the minor fissure is st able. Mild discoid atelectasis at the left lower lobe is new. 3. Hiatal hernia of the upper stomach and fluid within the lower esophagus likely from gastroesophage al reflux. Electronically signed by: Vignesh Rojas MD (02/18/2022 9:51 AM) [id number]
[2022-02-18 11:00] VITALS: BP 142/75
--- NOTE | 2022-02-18 13:12 | HP ---
DATE OF SERVICE: 02/18/2022 ADMIT DATE: 02/17/2022 HISTORY OF PRESENT ILLNESS: The patient is a 66-year-old female patient who presented to the Emergency Room of [facility] with a complaint of shortness of breath. She stated that she had surgery on 02/08/2022 for right inguinal hernia repair. She has also some left lower extremity swelling and shortness of breath since the surgery. She denied any pain. No nausea, no vomiting, no diarrhea, no chest pain. She stated that she also had right labial swelling and redness and complained also of urinary frequency. She was treated for cellulitis, and apparently, she was with another person who tested positive for COVID and had 2 home COVID testing that were negative. Given recent surgery and leg swelling and shortness of breath, a decision was made to admit her for further evaluation. We did actually a venous Doppler ultrasound of her lower extremities that were both negative and unfortunately, SHE IS ALLERGIC TO IODINE AND IV CONTRAST, and therefore, the patient was admitted and underwent treatment with prednisone and Benadryl as per the Radiology protocol for people with ALLERGY TO IODINE and we will arrange for a CT angio to rule out the possibility of pulmonary embolism. I also did not start her on Lovenox or heparin or Eliquis given that she stated that she was diagnosed with von Willebrand syndrome and has had bleeding episodes before and given that she was stable, I decided just to observe her. PAST MEDICAL HISTORY: Significant for hypertension, hyperlipidemia, osteoarthritis, osteoporosis, nephrolithiasis, obstructive sleep apnea; however, she is not on any CPAP or BiPAP. She has a history of TIA, von Willebrand syndrome as well as history of epilepsy diagnosed in 2001. She also has a history of depression. PAST SURGICAL HISTORY: Significant for right inguinal hernia repair, bilateral temporomandibular joint treatment, cervical lymph node biopsy, endometrial ablation, cholecystectomy, umbilical hernia repair, Henry fundoplication and revision. She has also surgical treatment of her internal hemorrhoids. ALLERGIES: SHE IS ALLERGIC TO PENICILLIN, SULFA DRUGS, FENTANYL, GABAPENTIN, IODINE, KETOROLAC, MEPERIDINE, AND PROMETHAZINE. MEDICATIONS: She is currently on following medications: She is on albuterol sulfate for ProAir 2 puffs every 4-6 hours, pravastatin sodium 40 mg at bedtime, Benicar 40 mg at bedtime, clonazepam 0.5 mg at bedtime, carbamazepine 200 mg twice a day, zonisamide for Zonegran 200 mg at bedtime, sertraline 50 mg daily. She is on buspirone ____ mg 3 times a day, ropinirole 4 mg 3 times a day, Colace 100 mg she takes 4 capsules at bedtime, famotidine 40 mg at bedtime. She is on Protonix 40 mg twice a day and levothyroxine sodium 50 mcg once a day. She is also on hydrochlorothiazide 25 mg once a day. FAMILY HISTORY: Her father at age of 75 because of myocardial infarction. Mother at age of 91 because of peripheral vascular disease complication. She has 1 older sister and 4 sisters younger. One of them has keratoconus and severe hyperlipidemia, one has shingles and third one with COPD. Her brother has epilepsy. SOCIAL HISTORY: She is . Her oldest son was diseased. She has a son and a daughter still alive and healthy. She is a secondhand smoker. Both parents were heavy smokers. She does not drink alcohol or do recreational drugs. 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 REVIEW OF SYSTEMS: As per history of present illness. PHYSICAL EXAMINATION: GENERAL: On arrival to the Emergency Room, she looked well and was clearly in no apparent respiratory distress. No pallor, jaundice, cyanosis. No thyromegaly, no jugular venous distention. Mild left lower extremity swelling. VITAL SIGNS: Her heart rate was 68, blood pressure was 121/74, temperature was 98.2, respiratory rate 20, and oxygen saturation was 98% on room air. HEAD, EYES, EARS, NOSE, AND THROAT: Normocephalic, atraumatic. NECK: Supple. HEART: Showed normal first and second heart sounds. No gallop, rub or murmur. CHEST: Clear to auscultation. No crepitation or rhonchi. ABDOMEN: Distended, soft, nontender. No guarding or rigidity. No organomegaly. All hernial orifices intact. Bowel sounds normal. NEUROLOGIC: She was grossly intact. LABORATORY DATA: On admission showed a white cell count of 3.6, hemoglobin 11.8, hematocrit 36, MCV 95 and platelet count of 169,000 with automated differential showed 64% polymorphs, 23% lymphocytes, 7% monocytes. Her D-dimer was 1.05. Her chemistry showed a serum sodium 142, potassium 3.3, chloride 105, bicarbonate 31, anion gap of 6, BUN 20, creatinine 0.7. Estimated GFR was 83 mL per minute. Her glucose was 96, calcium was 8.6. Total bilirubin, AST, ALT, alkaline phosphatase were normal. Her troponin I was only 8. Beta natriuretic peptide was only 74. Total protein 6.2, albumin was 3.1. Urinalysis essentially unremarkable, and her coronavirus by rapid antigen testing was negative. Her chest x-ray showed no acute finding. She has right hemidiaphragm remains elevated, no new infiltrate or effusion is seen. The heart appears enlarged, but unchanged. Pulmonary vascularity is not congested. There is evidence of hiatal hernia. The venous Doppler ultrasound of both lower extremities showed no deep vein thrombosis identified throughout the left lower extremity. Venous Doppler ultrasound of left upper extremity showed no deep or superficial thrombosis seen throughout the left upper extremity. ASSESSMENT AND PLAN: The patient was admitted, continued on all her medications, started on the steroids and Benadryl as per the Radiology protocol and once she completes the protocol, we will do CT angio of the chest and decide on further management accordingly. THEODORE/BOZENA/SOFÍA DR: Jesus TID: [id number]
--- NOTE | 2022-02-18 13:18 | NUR ---
PT DISCHARGED AT APPROX 1315 VIA WHEELCHAIR TO CAR WHERE WAS WAITING. ALL BELONGINGS LEFT WITH THE PT. PT STATES UNDERSTANDING OF DISCHARGE INSTRUCTIONS
--- NOTE | 2022-02-18 22:43 | DS ---
DATE OF DISCHARGE: 02/18/2022 HOSPITAL COURSE: The patient is a 66-year-old female patient who presented to the Emergency Room with complaint of shortness of breath and swelling of her legs. She apparently had had right inguinal hernia repair done on 02/08 and given her surgery and immobility and her weight, we were concerned about the possibility of pulmonary emboli; however, SHE IS ALLERGIC TO INTRAVENOUS IODINE CONTAINING CONTRAST and we did venous Doppler ultrasound of her left lower extremity that is more swollen than the right and it was negative for DVT. She has also venous Doppler ultrasound of her left upper extremity, was negative for DVT and given her allergies we consulted the Radiology and we will follow their protocol for the patient with allergy and she was given treatment with prednisone as per protocol and then Benadryl half an hour before the actual procedure and her CT angio of the chest was negative for DVT. Given that she has questionable history of von Willebrand disease, I held on anticoagulating her given that she has bled before and basically the patient did very well. She was hypoxic, but it transpired that she has been a second hand smoker. She has also had obstructive sleep apnea and we checked her oxygen on room air and did very well without it. The patient basically remained stable, has had no more shortness of breath and a decision was made to discharge her home. PHYSICAL EXAMINATION: GENERAL: When I saw her this afternoon, she looked well and was clearly in no apparent respiratory distress. She is somewhat pale. No jaundice, cyanosis or thyromegaly. No jugular venous distention. No limb edema. VITAL SIGNS: Her heart rate was 49, blood pressure was 142/75, temperature 98.2, respiratory rate was 18 and her oxygen saturation was 95% on 1 liter of oxygen. HEAD, EYES, EARS, NOSE, AND THROAT: Normocephalic, atraumatic. NECK: Supple. HEART: Showed normal first and second heart sounds. No gallop or murmur. CHEST: Clear to auscultation, no crepitation or rhonchi. ABDOMEN: Distended, soft, nontender. NEUROLOGIC: She was grossly intact. LABORATORY DATA: Her lab work showed her white cell count to be 3.6, hemoglobin 11.8, hematocrit 36, MCV 95 and platelet count of 169,000. Her chemistry showed a serum sodium of 142, potassium 3.3, chloride 105, bicarbonate 31, anion gap of 6, BUN 20, creatinine 0.7. Estimated GFR was 83 mL per minute. Her glucose was 96, calcium was 8.6. Total bilirubin, AST, ALT, alkaline phosphatase are normal. Her troponin I high sensitivity was only 8 and B-type natriuretic peptide was 74. Total protein 6.2, albumin 3.1. D-dimer was 1.05 mg per liter. Urinalysis essentially unremarkable and her coronavirus by rapid antigen testing was negative. ASSESSMENT: 1. Acute hypoxic respiratory failure, resolved. 2. Morbid obesity. 3. Probably underlying chronic obstructive pulmonary disease. She is a secondhand smoker. 4. Morbid obesity and obstructive sleep apnea. 5. Other medical problems include hypertension, seizure disorder, osteoporosis, osteoarthritis, bronchial asthma. PLAN: The patient was discharged home to continue on her albuterol sulfate 2 puffs every 4-6 hours, buspirone 15 mg t.i.d., carbamazepine 200 mg twice a day, clonazepam 0.5 mg at bedtime, Colace 100 mg twice a day and Colace 4 capsules at bedtime, famotidine 40 mg at bedtime, hydrochlorothiazide 25 mg daily, levothyroxine sodium 50 mcg daily, olmesartan medoxomil for Benicar 40 mg once a day, Protonix 40 mg twice a day and pravastatin sodium 40 mg at bedtime, Requip 4 mg 3 times a day, sertraline 50 mg daily, and Zonegran 200 mg at bedtime. CIELO DR: Jesus TID: [id number]
== END 2022-02-18 13:18 | disposition home or self-care (01) ==
LOC: ER 10:01 → INTOOBSV 16:46 → ER HOLD 16:46 → 1 SOUTH 17:05
PROVIDERS: ADMIT Internal Medicine; ATTEND Internal Medicine
DX: J96.01 Acute respiratory failure with hypoxia (principal); Z20.822 Contact with and (suspected) exposure to COVID-19; E66.01 Morbid (severe) obesity due to excess calories; J44.9 Chronic obstructive pulmonary disease, unspecified; G47.33 Obstructive sleep apnea (adult) (pediatric); I10 Essential (primary) hypertension; D68.0 Von Willebrand disease; G40.909 Epilepsy, unspecified, not intractable, without status epilepticus; K40.90 Unilateral inguinal hernia, without obstruction or gangrene, not specified as recurrent; M19.90 Unspecified osteoarthritis, unspecified site; E78.5 Hyperlipidemia, unspecified; M41.9 Scoliosis, unspecified; K21.9 Gastro-esophageal reflux disease without esophagitis; M81.0 Age-related osteoporosis without current pathological fracture; Z77.22 Contact with and (suspected) exposure to environmental tobacco smoke (acute) (chronic); Z86.16 Personal history of COVID-19; Z86.73 Personal history of transient ischemic attack (TIA), and cerebral infarction without residual deficits; Z87.442 Personal history of urinary calculi; Z79.899 Other long term (current) drug therapy; Z98.890 Other specified postprocedural states; Z68.41 Body mass index [BMI] 40.0-44.9, adult
CPT/HCPCS: 36415; 71045; 71275; 80053; 81001; 83880; 84484; 85025; 85379; 87426; 93005; 93971; 99285; G0378; J7512; Q0163; U0003; G0379